=== PATIENT | female | born 1955 | race Caucasian/White ===

== ENCOUNTER 2016-11-03 21:55 | Emergency (ER) | payer OTHER ==
[2016-11-03] MEDS ORDERED: Iopamidol 755 Mg/ML 100 ML Bottle IVPUSH ONE (22:11)
[2016-11-03] MEDS ORDERED: LORazepam 2 MG/ML Syringe IVPUSH ONE (22:11)
[2016-11-03] MEDS ORDERED: Sodium Chloride 0.9% 500 ML IV SCH (22:15)
--- NOTE | 2016-11-03 22:15 | EDM.PDOC ---
ED HPI GENERAL MEDICAL PROBLEM - General Stated Complaint: BLOOD CLOT, CHEST PAIN Time Seen by Provider: 11/03/16 22:13 Source of Information: Reports: Patient History Limitations: Reports: No Limitations - History of Present Illness INITIAL COMMENTS - FREE TEXT/NARRATIVE: had PE in August and taking eliquist. SHINGLE [employer]ER same Sx returned with pain sob. Left Chest Pain Score (Numeric/FACES): 8 - Related Data Allergies Allergy/AdvReac Type Severity Reaction Status Date / Time fentanyl Allergy Severe throat Verified 11/03/16 23:08 swells prednisone Allergy Intermediate heart races Verified 11/03/16 23:08 Home Meds: Home Meds Apixaban [Eliquis] 5 mg PO BID 11/03/16 [History] Hydrochlorothiazide 12.5 mg PO DAILY 11/03/16 [History] Metoprolol Succinate 100 mg PO DAILY 11/03/16 [History] Venlafaxine [Effexor XR] 150 mg PO DAILY 11/03/16 [History] lamoTRIgine [Lamictal] 200 mg PO DAILY 11/03/16 [History] ED ROS GENERAL - Review of Systems Review Of Systems: ROS reveals no pertinent complaints other than HPI. ED EXAM, GENERAL - Physical Exam Exam: See Below Exam Limited By: No Limitations General Appearance: Alert, WD/WN, Anxious, Mild Distress Ears: Hearing Grossly Normal Throat/Mouth: Normal Voice, No Airway Compromise Head: Atraumatic Neck: Non-Tender, Full Range of Motion Respiratory/Chest: No Respiratory Distress, No Accessory Muscle Use, Rhonchi. No: Accessory Muscle Use, Retractions, Splinting Cardiovascular: Regular Rate, Rhythm GI/Abdominal: Soft, Non-Tender Neurological: Alert, Oriented, Normal Cognition, Normal Gait, No Motor/Sensory Deficits Psychiatric: Anxious Skin Exam: Warm, Dry Lymphatic: No Adenopathy Course - Vital Signs Last Recorded V/S: Last Vital Signs Temp 36.9 C 11/03/16 22:02 Pulse 77 11/03/16 22:02 Resp 18 11/03/16 22:02 BP 135/55 L 11/03/16 22:02 Pulse Ox 98 11/03/16 22:02 - Orders/Labs/Meds Orders: Active Orders 24 hr Category Date Time Status EKG 12 Lead [EKG Documentation Completion] [RC] STAT Care 11/03/16 22:12 Active Sodium Chloride 0.9% [Normal Saline] 500 ml Med 11/03/16 22:15 Active IV .BOLUS Medication Orders Sodium Chloride (Normal Saline) 500 mls @ 500 mls/hr IV .BOLUS BEULAH Last Admin: 11/03/16 22:46 Dose: 500 mls/hr Labs: Laboratory Tests 11/03/16 11/03/16 11/03/16 Range/Units 22:23 22:23 22:23 WBC 13.9 H (5.0-10.0) 10^3/uL RBC 4.34 (4.2-5.4) 10^6/uL Hgb 13.3 (12.0-16.0) g/dL Hct 41.1 (37.0-47.0) % MCV 94.7 (80-100) fL MCH 30.6 (27.0-34.0) pg MCHC 32.4 L (33.0-35.0) g/dL Plt Count 276 (150-450) 10^3/uL Neut % (Auto) 68.4 (42.2-75.2) % Lymph % (Auto) 24.2 (20.5-50.1) % [place] % (Auto) 6.3 (2-8) % Eos % (Auto) 0.7 L (1.0-3.0) % Baso % (Auto) 0.4 (0.0-1.0) % PT (9.0-12.0) SEC INR (0.9-1.2) APTT (22.0-34.0) SEC D-Dimer, Quantitative < 100 (0-400) ng/mL Sodium 140 (135-145) mmol/L Potassium 3.3 L (3.6-5.0) mmol/L Chloride 104 (101-111) mmol/L Carbon Dioxide 27.0 (21.0-31.0) mmol/L Anion Gap 12.3 BUN 14 (7-18) mg/dL Creatinine 0.8 (0.6-1.3) mg/dL Est Cr Clr Drug Dosing TNP Estimated GFR (MDRD) > 60 BUN/Creatinine Ratio 17.50 Glucose 101 (74-105) mg/dL Calcium 8.6 (8.4-10.2) mg/dl Total Bilirubin 0.4 (0.2-1.0) mg/dL AST 19 (10-42) IU/L ALT 19 (10-60) IU/L Alkaline Phosphatase 99 (42-121) IU/L Troponin I < 0.02 (0.00-0.02) ng/ml B-Natriuretic Peptide 68 (0-100) pg/ml Total Protein 6.8 (6.7-8.2) g/dl Albumin 3.8 (3.2-5.5) g/dl Globulin 3.0 Albumin/Globulin Ratio 1.27 // Range/Units 22:23 WBC (5.0-10.0) 10^3/uL RBC (4.2-5.4) 10^6/uL Hgb (12.0-16.0) g/dL Hct (37.0-47.0) % MCV (80-100) fL MCH (27.0-34.0) pg MCHC (33.0-35.0) g/dL Plt Count (150-450) 10^3/uL Neut % (Auto) (42.2-75.2) % Lymph % (Auto) (20.5-50.1) % [place] % (Auto) (2-8) % Eos % (Auto) (1.0-3.0) % Baso % (Auto) (0.0-1.0) % PT 10.8 (9.0-12.0) SEC INR 1.1 (0.9-1.2) APTT 27.4 (22.0-34.0) SEC D-Dimer, Quantitative (0-400) ng/mL Sodium (135-145) mmol/L Potassium (3.6-5.0) mmol/L Chloride (101-111) mmol/L Carbon Dioxide (21.0-31.0) mmol/L Anion Gap BUN (7-18) mg/dL Creatinine (0.6-1.3) mg/dL Est Cr Clr Drug Dosing Estimated GFR (MDRD) BUN/Creatinine Ratio Glucose (74-105) mg/dL Calcium (8.4-10.2) mg/dl Total Bilirubin (0.2-1.0) mg/dL AST (10-42) IU/L ALT (10-60) IU/L Alkaline Phosphatase (42-121) IU/L Troponin I (0.00-0.02) ng/ml B-Natriuretic Peptide (0-100) pg/ml Total Protein (6.7-8.2) g/dl Albumin (3.2-5.5) g/dl Globulin Albumin/Globulin Ratio Meds: Medications Generic Name Dose Route Start Last Admin Trade Name Esdras PRN Reason Stop Dose Admin Sodium Chloride 500 mls @ 500 mls/hr 11/03/16 22:15 11/03/16 22:46 Normal Saline IV 500 mls/hr .BOLUS BEULAH Administration Discontinued Medications Generic Name Dose Route Start Last Admin Trade Name Esdras PRN Reason Stop Dose Admin Diphenhydramine HCl 25 mg 11/03/16 22:36 11/03/16 22:45 Benadryl IVPUSH 11/03/16 22:37 25 mg ONETIME ONE Administration Hydromorphone HCl 1 mg 11/03/16 23:19 11/03/16 23:26 Dilaudid IVPUSH 11/03/16 23:20 1 mg ONETIME ONE Administration Iopamidol 100 ml 11/03/16 22:11 11/03/16 23:04 Isovue-370 (76%) IVPUSH 11/03/16 22:12 66 ml ONETIME ONE Administration Lorazepam 1 mg 11/03/16 22:11 11/03/16 22:30 Ativan IVPUSH 11/03/16 22:12 1 mg ONETIME ONE Administration Morphine Sulfate 2 mg 11/03/16 22:35 11/03/16 22:45 Morphine IVPUSH 11/03/16 22:36 2 mg ONETIME ONE Administration Morphine Sulfate 2 mg 11/03/16 23:56 Morphine IVPUSH 11/03/16 23:57 ONETIME ONE - Re-Assessments/Exams Free Text/Narrative Re-Assessment/Exam: 11/03/16 23:59 results discussed with Pt Departure - Departure Time of Disposition: 23:59 Disposition: Home, Self-Care 01 Condition: good Clinical Impression: Atypical chest pain, History of pulmonary embolism Instructions: Nonspecific Chest Pain, [id number] Forms: ED Department Discharge Additional Instructions: 1) rest and avoid excessive activities 2) try heat to sore areas of chest and back 3) follow up at clinic or recheck if there is any changes or concerns rx togo; norco x 2 - My Orders Last 24 Hours: My Active Orders 11/03/16 22:12 EKG 12 Lead [EKG Documentation Completion] [RC] STAT 11/03/16 22:15 Sodium Chloride 0.9% [Normal Saline] 500 ml IV .BOLUS - Assessment/Plan Last 24 Hours: My Active Orders 11/03/16 22:12 EKG 12 Lead [EKG Documentation Completion] [RC] STAT 11/03/16 22:15 Sodium Chloride 0.9% [Normal Saline] 500 ml IV .BOLUS
[2016-11-03] MEDS ORDERED: Morphine 2 MG/ML Syringe IVPUSH ONE ×2 (22:35→23:56)
[2016-11-03] MEDS ORDERED: diphenhydrAMINE 50 MG/ML SDV IVPUSH ONE (22:36)
[2016-11-03 22:48] LABS: CHLORIDE,CL 104 mmol/L (101-111); SODIUM,NA 140 mmol/L (135-145)
[2016-11-03] MEDS ORDERED: HYDROmorphone 1 MG/ML Syringe IVPUSH ONE (23:19)
[2016-11-04] MEDS ORDERED: Acetaminophen/HYDROcodone 325-10 MG Tab ONE (00:12)
[2016-11-04] MEDS ORDERED: Acetaminophen/HYDROcodone 325-10 MG Tab PO ONE (00:12)
[2016-11-04 00:20] VITALS: BP 135/55
--- NOTE | 2016-11-05 16:28 | EKG ---
11/03/2016 - BHARATH GONZALEZ - EKG from 10/26/2016 per my reading, shows inferior inverted T-waves, anteroseptal Q-waves. [facility] /[id number]
== END 2016-11-04 00:26 | disposition home or self-care (01) ==
LOC: DL.ED 21:55
DX: R07.89 Other chest pain (principal); Z86.711 Personal history of pulmonary embolism; Z88.8 Allergy status to other drugs, medicaments and biological substances; Z79.899 Other long term (current) drug therapy
CPT/HCPCS: 36415; 71260; 80053; 83880; 84484; 85025; 85379; 85610; 85730; 93005; 96361; 96374; 96375; 96376; 99285; J1170; J1200; J2060; J2270; J7040; Q9967; A9270-GY

== ENCOUNTER 2016-12-14 23:45 | Emergency (ER) | payer OTHER ==
[2016-12-15] MEDS ORDERED: Sodium Chloride 0.9% 1,000 ML IV ONE (00:21)
[2016-12-15] MEDS ORDERED: diphenhydrAMINE 50 MG/ML SDV IVPUSH ONE (00:22)
[2016-12-15] MEDS ORDERED: Ondansetron 4 MG/2 ML SDV IV ONE (00:23)
[2016-12-15] MEDS ORDERED: Morphine 2 MG/ML Syringe IVPUSH ONE ×2 (00:24→01:02)
[2016-12-15] MEDS ORDERED: Ketorolac 30 MG/ML SDV IVPUSH ONE (02:32)
--- NOTE | 2016-12-15 02:53 | EDM.PDOC ---
ED HPI GENERAL MEDICAL PROBLEM - General Chief Complaint: Headache Stated Complaint: MIGRAINE Time Seen by Provider: 12/15/16 00:19 Source of Information: Reports: Patient History Limitations: Reports: No Limitations - History of Present Illness INITIAL COMMENTS - FREE TEXT/NARRATIVE: c/o migraine headache starting this evening. Hx of migraines in past. Is visiting to area so did not have usual home medications to take. Experiencing nausea, light sensitivity, tenseness to neck and pain right side of head. Notes same patterna and severity of usual migraines. Last was one year ago. Notes under stress today and is usual trigger for headaches. Onset: Today Location: Reports: Head Quality: Reports: Ache, Same as Previous Episode, Throbbing Associated Symptoms: Reports: Headaches, Nausea/Vomiting Headache Pain Score (Numeric/FACES): 5 - Related Data Allergies Allergy/AdvReac Type Severity Reaction Status Date / Time fentanyl Allergy Severe throat Verified 12/15/16 00:05 swells prednisone Allergy Intermediate heart races Verified 12/15/16 00:05 Home Meds: Home Meds Apixaban [Eliquis] 5 mg PO BID 11/03/16 [History] ClonazePAM [KlonoPIN] 2 mg PO ASDIRECTED PRN 11/03/16 [History] Hydrochlorothiazide 12.5 mg PO DAILY 11/03/16 [History] Metoprolol Succinate 100 mg PO DAILY 11/03/16 [History] Venlafaxine [Effexor XR] 150 mg PO DAILY 11/03/16 [History] lamoTRIgine [Lamictal] 200 mg PO DAILY 11/03/16 [History] Past Medical History HEENT 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: Impaired Vision Other HEENT History: wears glasses Cardiovascular 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: Hypertension Psychiatric 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: Anxiety, Depression - Past Surgical History Cardiovascular Surgical 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: Other (See Below) Other Cardiovascular Surgeries/Procedures: PE GI Surgical 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: Appendectomy Social & Family History - Tobacco Use Smoking Status *Q: Never Smoker Second Hand Smoke Exposure: No - Caffeine Use Caffeine Use: Reports: Soda - Recreational Drug Use Recreational Drug Use: No ED ROS GENERAL - Review of Systems Review Of Systems: See Below Constitutional: Reports: No Symptoms HEENT: Reports: Eye Pain (sensitivity to light) Respiratory: Reports: No Symptoms Cardiovascular: Reports: No Symptoms Endocrine: Reports: No Symptoms GI/Abdominal: Reports: Nausea Skin: Reports: No Symptoms Neurological: Reports: Headache. Denies: Dizziness, Numbness, Paresthesia, Weakness Psychiatric: Reports: Anxiety - Physical Exam Exam: See Below Exam Limited By: No Limitations General Appearance: Alert, Moderate Distress Eye Exam: Bilateral Eye: EOMI, PERRL Ears: Normal External Exam Nose: Normal Inspection Throat/Mouth: Normal Inspection Head Exam: Atraumatic, Normocephalic, Scalp Tenderness (right paretal) Neck: Full Range of Motion, Other (tender lateral right posterior, tense muscles ) Respiratory/Chest: No Respiratory Distress, Lungs Clear, Normal Breath Sounds Cardiovascular: Normal Peripheral Pulses, Regular Rate, Rhythm GI/Abdominal: Normal Bowel Sounds Neuro Exam (Abbreviated): Alert, Oriented, Normal Cognition Extremities: Normal Inspection, Normal Range of Motion Psychiatric: Normal Affect, Normal Mood, Anxious Skin Exam: Warm, Dry, Intact, Normal Color, No Rash Course - Vital Signs Last Recorded V/S: Last Vital Signs Temp 98.1 F 12/15/16 02:50 Pulse 80 12/15/16 02:50 Resp 19 12/15/16 02:50 BP 128/63 12/15/16 02:50 Pulse Ox 98 12/15/16 02:50 - Orders/Labs/Meds Meds: Medications Discontinued Medications Generic Name Dose Route Start Last Admin Trade Name Esdras PRLindsey Reason Stop Dose Admin Diphenhydramine HCl 25 mg 12/15/16 00:22 12/15/16 00:44 Benadryl IVPUSH 12/15/16 00:23 25 mg ONETIME ONE Administration Sodium Chloride 1,000 mls @ 999 mls/hr 12/15/16 00:21 12/15/16 00:41 Normal Saline IV 12/15/16 01:21 999 mls/hr .BOLUS ONE Administration Ketorolac Tromethamine 30 mg 12/15/16 02:32 12/15/16 02:40 Toradol IVPUSH 12/15/16 02:33 Not Given ONETIME ONE Morphine Sulfate 2 mg 12/15/16 00:24 12/15/16 00:43 Morphine IVPUSH 12/15/16 00:25 2 mg ONETIME ONE Administration Morphine Sulfate 2 mg 12/15/16 01:02 12/15/16 01:10 Morphine IVPUSH 12/15/16 01:03 2 mg ONETIME ONE Administration Ondansetron HCl 4 mg 12/15/16 00:23 12/15/16 00:42 Zofran IV 12/15/16 00:24 4 mg ONETIME ONE Administration Departure - Departure Time of Disposition: 02:48 Disposition: Home, Self-Care 01 Condition: Fair Clinical Impression: Migraine - Discharge Information Instructions: Recurrent Migraine Headache, [id number] Referrals: PCP,Not In Area [Primary Care Provider] - Forms: ED Department Discharge Additional Instructions: rest resume home medications may repeat benadryl in 4 hours follow up as needed
[2016-12-15 03:03] VITALS: BP 128/63
== END 2016-12-15 02:54 | disposition home or self-care (01) ==
LOC: DL.ED 23:45
DX: G43.909 Migraine, unspecified, not intractable, without status migrainosus (principal); H54.7 Unspecified visual loss; I10 Essential (primary) hypertension; Z88.8 Allergy status to other drugs, medicaments and biological substances; Z79.899 Other long term (current) drug therapy
CPT/HCPCS: 96365; 96375; 99283; J1200; J2270; J2405; J7030

== ENCOUNTER 2017-01-05 20:28 | Emergency (ER) | payer OTHER ==
[2017-01-05 20:34] VITALS: BP 162/60
[2017-01-05] MEDS ORDERED: Butorphanol 2 MG/ML SDV IM ONE (21:00)
[2017-01-05] MEDS ORDERED: Promethazine 25 MG/ML SDV IM ONE (21:00)
--- NOTE | 2017-01-05 21:06 | EDM.PDOC ---
ED HPI GENERAL MEDICAL PROBLEM - General Chief Complaint: Headache Stated Complaint: MIGRAINE [id number] Time Seen by Provider: 01/05/17 20:53 Source of Information: Reports: Patient History Limitations: Reports: No Limitations - History of Present Illness INITIAL COMMENTS - FREE TEXT/NARRATIVE: gives h/o migraines usually Tx with P.O toradol if caught early but present due to family stress in having sick mother needing care and brother fighting with his and son preparing for his wedding and she forgot her toradol at home. Headache Pain Score (Numeric/FACES): 8 - Related Data Allergies Allergy/AdvReac Type Severity Reaction Status Date / Time fentanyl Allergy Severe throat Verified 12/15/16 00:05 swells prednisone Allergy Intermediate heart races Verified 12/15/16 00:05 gabapentin Allergy Nausea and Verified 01/05/17 20:36 Vomiting sumatriptan [From Imitrex] Allergy Nausea and Verified 01/05/17 20:36 Vomiting Home Meds: Home Meds Apixaban [Eliquis] 5 mg PO BID 11/03/16 [History] ClonazePAM [KlonoPIN] 2 mg PO ASDIRECTED PRN 11/03/16 [History] Hydrochlorothiazide 12.5 mg PO DAILY 11/03/16 [History] Metoprolol Succinate 100 mg PO DAILY 11/03/16 [History] Venlafaxine [Effexor XR] 150 mg PO DAILY 11/03/16 [History] lamoTRIgine [Lamictal] 200 mg PO DAILY 11/03/16 [History] Past Medical History HEENT 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: Impaired Vision Other HEENT History: wears glasses Cardiovascular 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: Hypertension Neurological 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: Migraines Psychiatric 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: Anxiety, Depression - Infectious Disease History Infectious Disease 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: Chicken Pox, Influenza, Measles, Mumps - Past Surgical History Cardiovascular Surgical 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: Other (See Below) Other Cardiovascular Surgeries/Procedures: PE GI Surgical 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: Appendectomy Social & Family History - Tobacco Use Smoking Status *Q: Never Smoker Second Hand Smoke Exposure: No - Caffeine Use Caffeine Use: Reports: Soda - Recreational Drug Use Recreational Drug Use: No ED ROS GENERAL - Review of Systems Review Of Systems: ROS reveals no pertinent complaints other than HPI. - Physical Exam Exam: See Below Exam Limited By: No Limitations General Appearance: Alert, WD/WN, Anxious, Mild Distress, Other (distraught crying) Eye Exam: Bilateral Eye: PERRL (pupils ER @ 4mm, mildly photophobic) Ears: Hearing Grossly Normal Throat/Mouth: Normal Voice, No Airway Compromise Head Exam: Atraumatic Neck: Non-Tender, Full Range of Motion Respiratory/Chest: No Respiratory Distress Cardiovascular: Regular Rate, Rhythm GI/Abdominal: Soft, Non-Tender Neuro Exam (Abbreviated): Alert, Oriented, Normal Cognition, Normal Gait, No Motor/Sensory Deficits Psychiatric: Tearful Skin Exam: Warm, Dry, Normal Color Course - Vital Signs Last Recorded V/S: Last Vital Signs Temp 36.9 C 01/05/17 20:33 Pulse 70 01/05/17 20:33 Resp 18 01/05/17 20:33 BP 162/60 H 01/05/17 20:33 Pulse Ox 99 01/05/17 20:33 - Orders/Labs/Meds Meds: Medications Discontinued Medications Generic Name Dose Route Start Last Admin Trade Name Freq PRN Reason Stop Dose Admin Butorphanol Tartrate 2 mg 01/05/17 21:00 Stadol IM 01/05/17 21:01 ONETIME ONE Promethazine HCl 25 mg 01/05/17 21:00 Phenergan IM 01/05/17 21:01 ONETIME ONE Departure - Departure Time of Disposition: 21:05 Disposition: Home, Self-Care 01 Condition: Good Clinical Impression: Tension-type headache - Discharge Information Instructions: Recurrent Migraine Headache, [id number] Forms: ED Department Discharge Additional Instructions: 1) rest 2) avoid stressful situations 3) follow up with family doctor rx togo; ativan 1mg take at night as needed x 1
[2017-01-05] MEDS ORDERED: LORazepam 1 MG Tab PO ONE (21:11)
[2017-01-05] MEDS ORDERED: LORazepam 1 MG Tab ONE (21:11)
== END 2017-01-05 21:26 | disposition home or self-care (01) ==
LOC: DL.ED 20:28
DX: G44.209 Tension-type headache, unspecified, not intractable (principal); I10 Essential (primary) hypertension; F41.9 Anxiety disorder, unspecified; F32.9 Major depressive disorder, single episode, unspecified; Z88.8 Allergy status to other drugs, medicaments and biological substances; Z79.899 Other long term (current) drug therapy; Z90.49 Acquired absence of other specified parts of digestive tract; Z86.711 Personal history of pulmonary embolism
CPT/HCPCS: 99283; J0595; J2550; A9270-GY

== ENCOUNTER 2017-03-16 19:30 | Emergency (ER) | payer OTHER ==
[2017-03-16 20:15] VITALS: BP 132/67
[2017-03-16] MEDS ORDERED: Butorphanol 2 MG/ML SDV IM ONE (21:17)
[2017-03-16] MEDS ORDERED: Promethazine 25 MG/ML SDV IM ONE (21:17)
--- NOTE | 2017-03-16 21:17 | EDM.PDOC ---
ED HPI GENERAL MEDICAL PROBLEM - General Chief Complaint: Headache Stated Complaint: MIGRAINE [id number] Time Seen by Provider: 03/16/17 21:19 Source of Information: Reports: Patient History Limitations: Reports: No Limitations - History of Present Illness INITIAL COMMENTS - FREE TEXT/NARRATIVE: C/o right sided migraine headache, started this am, but has not felt well all week worrying about health issues. 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 Hx migraine headaches. This similar as in past. Unable to sleep and home headache medications not helping. Sensitive to lights and nauseated. Headache Pain Score (Numeric/FACES): 8 - Related Data Allergies Allergy/AdvReac Type Severity Reaction Status Date / Time fentanyl Allergy Severe throat Verified 03/16/17 20:15 swells prednisone Allergy Intermediate heart races Verified 03/16/17 20:15 gabapentin Allergy Nausea and Verified 03/16/17 20:15 Vomiting sumatriptan [From Imitrex] Allergy Nausea and Verified 03/16/17 20:15 Vomiting Home Meds: Home Meds Apixaban [Eliquis] 5 mg PO BID 11/03/16 [History] ClonazePAM [KlonoPIN] 2 mg PO ASDIRECTED PRN 11/03/16 [History] Hydrochlorothiazide 12.5 mg PO DAILY 11/03/16 [History] Metoprolol Succinate 100 mg PO DAILY 11/03/16 [History] Venlafaxine [Effexor XR] 150 mg PO DAILY 11/03/16 [History] lamoTRIgine [Lamictal] 200 mg PO DAILY 11/03/16 [History] Past Medical History HEENT 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: Impaired Vision Other HEENT History: wears glasses Cardiovascular 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: Hypertension Neurological 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: Migraines Psychiatric 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: Anxiety, Depression Other Endocrine/Metabolic History: adreanal tumur - Infectious Disease History Infectious Disease 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: Chicken Pox, Influenza, Measles, Mumps - Past Surgical History Cardiovascular Surgical 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: Other (See Below) Other Cardiovascular Surgeries/Procedures: PE GI Surgical 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: Appendectomy Social & Family History - Tobacco Use Smoking Status *Q: Never Smoker Second Hand Smoke Exposure: No - Caffeine Use Caffeine Use: Reports: Soda - Recreational Drug Use Recreational Drug Use: No ED ROS GENERAL - Review of Systems Review Of Systems: ROS reveals no pertinent complaints other than HPI. Musculoskeletal: Denies: Neck Pain Neurological: Reports: Headache (right frontal temproal throbbing) - Physical Exam Exam: See Below Exam Limited By: No Limitations General Appearance: Alert, Anxious, Mild Distress Eye Exam: Bilateral Eye: EOMI, PERRL (photosensitivity) Ears: Normal External Exam Nose: Normal Inspection Throat/Mouth: Normal Inspection Head Exam: Atraumatic, Normocephalic Neck: Normal Inspection Respiratory/Chest: No Respiratory Distress, Lungs Clear, Normal Breath Sounds Cardiovascular: Normal Peripheral Pulses, Regular Rate, Rhythm GI/Abdominal: Normal Bowel Sounds Neuro Exam (Abbreviated): Alert, Oriented, Normal Cognition Extremities: Normal Range of Motion Psychiatric: Anxious, Tearful Skin Exam: Warm, Dry, Normal Color Course - Vital Signs Last Recorded V/S: Last Vital Signs Temp 97.8 F 03/16/17 20:09 Pulse 65 03/16/17 20:09 Resp 18 03/16/17 20:09 BP 132/67 03/16/17 20:09 Pulse Ox 100 03/16/17 20:09 - Orders/Labs/Meds Meds: Medications Discontinued Medications Generic Name Dose Route Start Last Admin Trade Name Freq PRN Reason Stop Dose Admin Butorphanol Tartrate 1 mg 03/16/17 21:17 03/16/17 21:32 Stadol IM 03/16/17 21:18 1 mg ONETIME ONE Administration Promethazine HCl 12.5 mg 03/16/17 21:17 03/16/17 21:29 Phenergan IM 03/16/17 21:18 12.5 mg ONETIME ONE Administration Departure - Departure Time of Disposition: 21:45 Disposition: Home, Self-Care 01 Condition: Fair Clinical Impression: Migraine - Discharge Information Instructions: Recurrent Migraine Headache, [id number] Referrals: PCP,None [Primary Care Provider] - Forms: ED Department Discharge Additional Instructions: Talk with primary care in am zofran 4mg ODT one every 6 hours as needed for nausea rest,
== END 2017-03-16 21:49 | disposition home or self-care (01) ==
LOC: DL.ED 19:30
DX: G43.909 Migraine, unspecified, not intractable, without status migrainosus (principal); I10 Essential (primary) hypertension; F32.9 Major depressive disorder, single episode, unspecified; Z90.49 Acquired absence of other specified parts of digestive tract; Z79.899 Other long term (current) drug therapy; Z88.8 Allergy status to other drugs, medicaments and biological substances
CPT/HCPCS: 96361; 96374; 99284; J0595; J2550

== ENCOUNTER 2017-06-08 22:45 | Emergency (ER) | payer OTHER ==
[2017-06-08] MEDS ORDERED: Butorphanol 2 MG/ML SDV IM ONE (23:08)
[2017-06-08] MEDS ORDERED: Promethazine 25 MG/ML SDV IM ONE (23:08)
[2017-06-08 23:09] VITALS: BP 138/63
--- NOTE | 2017-06-08 23:12 | EDM.PDOC ---
ED HPI GENERAL MEDICAL PROBLEM - General Chief Complaint: Headache Stated Complaint: MIGRAINE [id number] Time Seen by Provider: 06/08/17 23:07 Source of Information: Reports: Patient History Limitations: Reports: No Limitations - History of Present Illness INITIAL COMMENTS - FREE TEXT/NARRATIVE: long h/o migraine problem, present problem all day, did vomit x 1 Headache Pain Score (Numeric/FACES): 8 - Related Data Allergies Allergy/AdvReac Type Severity Reaction Status Date / Time fentanyl Allergy Severe throat Verified 06/08/17 22:54 swells prednisone Allergy Intermediate heart races Verified 06/08/17 22:54 gabapentin Allergy Nausea and Verified 06/08/17 22:54 Vomiting sumatriptan [From Imitrex] Allergy Nausea and Verified 06/08/17 22:54 Vomiting Home Meds: Home Meds Apixaban [Eliquis] 5 mg PO BID 11/03/16 [History] ClonazePAM [KlonoPIN] 2 mg PO ASDIRECTED PRN 11/03/16 [History] Hydrochlorothiazide 12.5 mg PO DAILY 11/03/16 [History] Metoprolol Succinate 100 mg PO DAILY 11/03/16 [History] Venlafaxine [Effexor XR] 150 mg PO DAILY 11/03/16 [History] lamoTRIgine [Lamictal] 200 mg PO DAILY 11/03/16 [History] Potassium Chloride [Klor-Con 10] 1 tab PO BID 06/08/17 [History] Past Medical History HEENT 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: Impaired Vision Other HEENT History: wears glasses Cardiovascular 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: Hypertension Neurological 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: Migraines Psychiatric 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: Anxiety, Depression Other Endocrine/Metabolic History: adreanal tumur - Infectious Disease History Infectious Disease 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: Chicken Pox, Influenza, Measles, Mumps - Past Surgical History Cardiovascular Surgical 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: Other (See Below) Other Cardiovascular Surgeries/Procedures: PE GI Surgical 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: Appendectomy Social & Family History - Tobacco Use Smoking Status *Q: Never Smoker Second Hand Smoke Exposure: No - Caffeine Use Caffeine Use: Reports: Soda - Recreational Drug Use Recreational Drug Use: No ED ROS GENERAL - Review of Systems Review Of Systems: ROS reveals no pertinent complaints other than HPI. - Physical Exam Exam: See Below Exam Limited By: No Limitations General Appearance: Alert, WD/WN, Mild Distress, Moderate Distress, Other (upset ) Eye Exam: Bilateral Eye: PERRL (pupils ER @ 4mm photophobic) Ears: Hearing Grossly Normal Throat/Mouth: Normal Voice, No Airway Compromise Head Exam: Atraumatic Neck: Non-Tender, Full Range of Motion Respiratory/Chest: No Respiratory Distress Cardiovascular: Regular Rate, Rhythm GI/Abdominal: Soft, Non-Tender Neuro Exam (Abbreviated): Alert, Oriented, Normal Cognition, Normal Gait, No Motor/Sensory Deficits Psychiatric: Tearful Skin Exam: Warm, Dry, Normal Color Course - Orders/Labs/Meds Orders: Active Orders 24 hr Category Date Time Status Butorphanol [Stadol] Med 06/08/17 23:08 Once 2 mg IM ONETIME ONE Promethazine [Phenergan] Med 06/08/17 23:08 Once 25 mg IM ONETIME ONE Departure - Departure Time of Disposition: 23:10 Disposition: Home, Self-Care 01 Condition: Good Clinical Impression: Migraine - Discharge Information Instructions: Recurrent Migraine Headache, [id number] Additional Instructions: 1) rest and avoid bright light and loud noise 2) liquids diet next 24 hours 3) follow up with family doctor or recheck as needed - My Orders Last 24 Hours: My Active Orders 06/08/17 23:08 Butorphanol [Stadol] 2 mg IM ONETIME ONE Promethazine [Phenergan] 25 mg IM ONETIME ONE - Assessment/Plan Last 24 Hours: My Active Orders 06/08/17 23:08 Butorphanol [Stadol] 2 mg IM ONETIME ONE Promethazine [Phenergan] 25 mg IM ONETIME ONE
[2017-06-08] MEDS ORDERED: HYDROmorphone 1 MG/ML Syringe IM ONE (23:47)
== END 2017-06-09 00:18 | disposition home or self-care (01) ==
LOC: DL.ED 22:45
DX: G43.909 Migraine, unspecified, not intractable, without status migrainosus (principal); I10 Essential (primary) hypertension; F32.9 Major depressive disorder, single episode, unspecified; Z79.899 Other long term (current) drug therapy; Z88.8 Allergy status to other drugs, medicaments and biological substances; Z88.5 Allergy status to narcotic agent
CPT/HCPCS: 96372; 99282; J0595; J1170; J2550

== ENCOUNTER 2017-06-21 22:52 | Emergency (ER) | payer OTHER ==
[2017-06-21 22:59] VITALS: BP 151/53
[2017-06-21] MEDS ORDERED: Butorphanol 2 MG/ML SDV IM ONE (23:33)
[2017-06-21] MEDS ORDERED: Promethazine 25 MG/ML SDV IM ONE (23:33)
--- NOTE | 2017-06-21 23:39 | EDM.PDOC ---
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 currently pending surgery and been caring for elderly mother. Treatments RESIN PAINTER: Reports: Acetaminophen Frontal Head Pain Score (Numeric/FACES): 8 - Related Data Allergies Allergy/AdvReac Type Severity Reaction Status Date / Time fentanyl Allergy Severe throat Verified 06/21/17 23:03 swells prednisone Allergy Intermediate heart races Verified 06/21/17 23:03 gabapentin Allergy Nausea and Verified 06/21/17 23:03 Vomiting sumatriptan [From Imitrex] Allergy Nausea and Verified 06/21/17 23:03 Vomiting Home Meds: Home Meds Apixaban [Eliquis] 5 mg PO BID 11/03/16 [History] ClonazePAM [KlonoPIN] 2 mg PO ASDIRECTED PRN 11/03/16 [History] Hydrochlorothiazide 12.5 mg PO DAILY 11/03/16 [History] Metoprolol Succinate 100 mg PO DAILY 11/03/16 [History] Venlafaxine [Effexor XR] 150 mg PO DAILY 11/03/16 [History] lamoTRIgine [Lamictal] 200 mg PO DAILY 11/03/16 [History] Potassium Chloride [Klor-Con 10] 1 tab PO BID 06/08/17 [History] Past Medical History HEENT 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: Impaired Vision Other HEENT History: wears glasses Cardiovascular 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: Hypertension 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 AIDE 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: Neurological 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: Migraines Psychiatric 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: Anxiety, Depression Other Endocrine/Metabolic History: adreanal tumur - Infectious Disease History Infectious Disease 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: Chicken Pox, Influenza, Measles, Mumps - Past Surgical History Cardiovascular Surgical 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: Other (See Below) Other Cardiovascular Surgeries/Procedures: PE GI Surgical 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: Appendectomy Social & Family History - Tobacco Use Smoking Status *Q: Never Smoker Second Hand Smoke Exposure: No - Caffeine Use Caffeine Use: Reports: Soda - Recreational Drug Use Recreational Drug Use: No ED ROS GENERAL - Review of Systems Review Of Systems: ROS reveals no pertinent complaints other than HPI. - Physical Exam Exam: See Below Exam Limited By: No Limitations General Appearance: Alert, WD/WN, Mild Distress, Moderate Distress, Other ( distraught) Eye Exam: Bilateral Eye: PERRL (pupils ER @ 4mm) Ears: Hearing Grossly Normal Throat/Mouth: Normal Voice, No Airway Compromise Head Exam: Atraumatic Neck: Non-Tender, Full Range of Motion Respiratory/Chest: No Respiratory Distress Cardiovascular: Regular Rate, Rhythm GI/Abdominal: Soft, Non-Tender Neuro Exam (Abbreviated): Alert, Oriented, Normal Cognition, Normal Gait, No Motor/Sensory Deficits Psychiatric: Anxious, Tearful Skin Exam: Warm, Dry, Normal Color Course - Vital Signs Last Recorded V/S: Last Vital Signs Temp 36.2 C 06/21/17 22:58 Pulse 71 06/21/17 22:58 Resp 18 06/21/17 22:58 BP 151/53 H 06/21/17 22:58 Pulse Ox 99 06/21/17 22:58 - Orders/Labs/Meds Meds: Medications Discontinued Medications Generic Name Dose Route Start Last Admin Trade Name Esdras PRN Reason Stop Dose Admin Butorphanol Tartrate 2 mg 06/21/17 23:33 06/21/17 23:41 Stadol IM 06/21/17 23:34 2 mg ONETIME ONE Administration Promethazine HCl 25 mg 06/21/17 23:33 06/21/17 23:41 Phenergan IM 06/21/17 23:34 25 mg ONETIME ONE Administration Departure - Departure Time of Disposition: 23:49 Disposition: Home, Self-Care 01 Condition: Good Clinical Impression: Migraine - Discharge Information Instructions: Recurrent Migraine Headache, [id number] Forms: ED Department Discharge Additional Instructions: 1) rest and avoid strenuous activities 2) follow up with family doctor or recheck as needed
[2017-06-22] MEDS ORDERED: LORazepam 2 MG/ML Syringe IM ONE (00:22)
== END 2017-06-22 00:58 | disposition home or self-care (01) ==
LOC: DL.ED 22:52
DX: G43.909 Migraine, unspecified, not intractable, without status migrainosus (principal); I10 Essential (primary) hypertension; Z88.8 Allergy status to other drugs, medicaments and biological substances
CPT/HCPCS: 96372; 99283; J0595; J2060; J2550

== ENCOUNTER 2017-08-16 22:05 | Emergency (ER) | payer OTHER ==
[2017-08-16 22:40] VITALS: BP 134/54
--- NOTE | 2017-08-16 23:26 | EDM.PDOC ---
ED HPI GENERAL MEDICAL PROBLEM - General Chief Complaint: General Stated Complaint: SWOLLEN FEET [id number] Time Seen by Provider: 08/16/17 23:23 Source of Information: Reports: Patient, RN Notes Reviewed History Limitations: Reports: No Limitations - History of Present Illness INITIAL COMMENTS - FREE TEXT/NARRATIVE: ED with c/o feet swelling and 20# weight gain since Friday, Hx recent dx pheochromocytoma and is on high dose sodium prep prior to surgery. Surgery scheduled for [facility] - Related Data Allergies Allergy/AdvReac Type Severity Reaction Status Date / Time fentanyl Allergy Severe throat Verified 08/16/17 23:18 swells prednisone Allergy Intermediate heart races Verified 08/16/17 23:18 gabapentin Allergy Nausea and Verified 08/16/17 23:18 Vomiting sumatriptan [From Imitrex] Allergy Nausea and Verified 08/16/17 23:18 Vomiting Home Meds: Home Meds Apixaban [Eliquis] 5 mg PO BID 11/03/16 [History] ClonazePAM [KlonoPIN] 0.5 mg PO ASDIRECTED PRN 11/03/16 [History] Metoprolol Succinate 100 mg PO DAILY 11/03/16 [History] Venlafaxine [Effexor XR] 150 mg PO DAILY 11/03/16 [History] lamoTRIgine [Lamictal] 200 mg PO DAILY 11/03/16 [History] Doxazosin [Doxazosin Mesylate] 2 mg PO BID 08/16/17 [History] Past Medical History HEENT 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: Impaired Vision Other HEENT History: wears glasses Cardiovascular 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: Hypertension Gastrointestinal 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: GERD SURGERY TECH 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: Musculoskeletal 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: Arthritis, Osteoarthritis Other Musculoskeletal History: Left shoulder and knees oliva. 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 Oncologic (Cancer) 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: Other (See Below) Other Oncologic History: Tumor pheochromocytoma - Infectious Disease History Infectious Disease 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: Chicken Pox, Influenza, Measles, Mumps - Past Surgical History Cardiovascular Surgical 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: Other (See Below) Other Cardiovascular Surgeries/Procedures: PE GI Surgical 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: Appendectomy Social & Family History - Family History Family Medical History: Noncontributory - Tobacco Use Smoking Status *Q: Never Smoker Second Hand Smoke Exposure: No - Caffeine Use Caffeine Use: Reports: None, Soda - Recreational Drug Use Recreational Drug Use: No ED ROS GENERAL - Review of Systems Review Of Systems: See Below Constitutional: Reports: Weight Gain HEENT: Reports: Glasses Respiratory: Reports: No Symptoms Cardiovascular: Reports: Edema GI/Abdominal: Reports: Nausea : Reports: No Symptoms Musculoskeletal: Reports: Muscle Stiffness Neurological: Reports: No Symptoms Psychiatric: Reports: Anxiety ED EXAM, GENERAL - Physical Exam Exam: See Below Exam Limited By: No Limitations General Appearance: Alert, Anxious Eye Exam: Bilateral Eye: EOMI, PERRL Ears: Normal External Exam, Normal TMs Nose: Normal Inspection Throat/Mouth: Normal Inspection, Normal Lips, Normal Oropharynx, Normal Voice Head: Atraumatic, Normocephalic Neck: Normal Inspection, Full Range of Motion. No: Lymphadenopathy (L), Lymphadenopathy (R) Respiratory/Chest: No Respiratory Distress, Lungs Clear, Normal Breath Sounds Cardiovascular: Normal Peripheral Pulses, Regular Rate, Rhythm GI/Abdominal: Normal Bowel Sounds, Soft, Non-Tender Back Exam: Normal Inspection Extremities: Pedal Edema (trace) Neurological: Alert, Oriented, CN II-XII Intact, Normal Cognition, Normal Gait, No Motor/Sensory Deficits Psychiatric: Anxious, Tearful Skin Exam: Warm, Dry, Intact, Normal Color Course - Vital Signs Last Recorded V/S: Last Vital Signs Temp 97.8 F 08/16/17 22:25 Pulse 80 08/16/17 22:25 Resp 14 08/16/17 22:25 BP 134/54 L 08/16/17 22:25 Pulse Ox 99 08/16/17 22:25 - Orders/Labs/Meds Labs: Laboratory Tests 08/16/17 08/16/17 08/16/17 Range/Units 22:55 22:55 22:55 WBC 11.3 H (5.0-10.0) 10^3/uL RBC 3.68 L (4.2-5.4) 10^6/uL Hgb 11.0 L D (12.0-16.0) g/dL Hct 33.5 L (37.0-47.0) % MCV 91.0 D (80-100) fL MCH 29.9 (27.0-34.0) pg MCHC 32.8 L (33.0-35.0) g/dL Plt Count 218 (150-450) 10^3/uL Neut % (Auto) 65.2 (42.2-75.2) % Lymph % (Auto) 25.4 (20.5-50.1) % [place] % (Auto) 7.3 (2-8) % Eos % (Auto) 1.9 (1.0-3.0) % Baso % (Auto) 0.2 (0.0-1.0) % PT 10.5 (9.0-12.0) SEC INR 1.0 (0.9-1.2) Sodium 140 (135-145) mmol/L Potassium 3.6 (3.6-5.0) mmol/L Chloride 107 (101-111) mmol/L Carbon Dioxide 27.0 (21.0-31.0) mmol/L Anion Gap 9.6 BUN 13 (7-18) mg/dL Creatinine 0.8 (0.6-1.3) mg/dL Est Cr Clr Drug Dosing 70.01 mL/min Estimated GFR (MDRD) > 60 BUN/Creatinine Ratio 16.25 Glucose 104 (74-105) mg/dL Calcium 8.2 L (8.4-10.2) mg/dl Magnesium 1.9 (1.8-2.5) mg/dL Total Bilirubin 0.5 (0.2-1.0) mg/dL AST 35 (10-42) IU/L ALT 37 (10-60) IU/L Alkaline Phosphatase 87 (42-121) IU/L CK-MB (CK-2) (0.4-4.7) ng/mL Troponin I < 0.02 (0.00-0.02) ng/ml B-Natriuretic Peptide 114 H (0-100) pg/ml Total Protein 6.1 L (6.7-8.2) g/dl Albumin 3.1 L (3.2-5.5) g/dl Globulin 3.0 Albumin/Globulin Ratio 1.03 /03/26 Range/Units 22:55 WBC (5.0-10.0) 10^3/uL RBC (4.2-5.4) 10^6/uL Hgb (12.0-16.0) g/dL Hct (37.0-47.0) % MCV (80-100) fL MCH (27.0-34.0) pg MCHC (33.0-35.0) g/dL Plt Count (150-450) 10^3/uL Neut % (Auto) (42.2-75.2) % Lymph % (Auto) (20.5-50.1) % [place] % (Auto) (2-8) % Eos % (Auto) (1.0-3.0) % Baso % (Auto) (0.0-1.0) % PT (9.0-12.0) SEC INR (0.9-1.2) Sodium (135-145) mmol/L Potassium (3.6-5.0) mmol/L Chloride (101-111) mmol/L Carbon Dioxide (21.0-31.0) mmol/L Anion Gap BUN (7-18) mg/dL Creatinine (0.6-1.3) mg/dL Est Cr Clr Drug Dosing mL/min Estimated GFR (MDRD) BUN/Creatinine Ratio Glucose (74-105) mg/dL Calcium (8.4-10.2) mg/dl Magnesium (1.8-2.5) mg/dL Total Bilirubin (0.2-1.0) mg/dL AST (10-42) IU/L ALT (10-60) IU/L Alkaline Phosphatase (42-121) IU/L CK-MB (CK-2) 2.60 (0.4-4.7) ng/mL Troponin I (0.00-0.02) ng/ml B-Natriuretic Peptide (0-100) pg/ml Total Protein (6.7-8.2) g/dl Albumin (3.2-5.5) g/dl Globulin Albumin/Globulin Ratio - Radiology Interpretation Free Text/Narrative:: CXR clear lungs, no cardiomegaly Departure - Departure Time of Disposition: 00:21 Disposition: Home, Self-Care 01 Condition: Good, Undetermined Clinical Impression: Anxiety Pheochromocytoma Qualifiers: Laterality: unspecified laterality Qualified Code(s): D35.00 - Benign neoplasm of unspecified adrenal gland Edema Qualifiers: Edema type: unspecified Qualified Code(s): R60.9 - Edema, unspecified - Discharge Information Forms: ED Department Discharge Additional Instructions: Follow up with [facility] providers in am Elevate feet Clonazepam may take up to 3 times daily Continue monitoring blood pressure and weight Urgent follow up if chest pain or SOB
[2017-08-16 23:35] LABS: CHLORIDE,CL 107 mmol/L (101-111); SODIUM,NA 140 mmol/L (135-145)
--- NOTE | 2017-08-20 10:36 | EKG ---
08/16/2017- BHARATH GONZALEZ - EKG, per my reading, shows sinus rhythm at a rate of 78. [facility] /[id number]
== END 2017-08-17 00:33 | disposition home or self-care (01) ==
LOC: DL.ED 22:05
DX: R60.9 Edema, unspecified (principal); F41.9 Anxiety disorder, unspecified; D35.00 Benign neoplasm of unspecified adrenal gland; I10 Essential (primary) hypertension; K21.9 Gastro-esophageal reflux disease without esophagitis; F32.9 Major depressive disorder, single episode, unspecified; M19.90 Unspecified osteoarthritis, unspecified site; Z88.8 Allergy status to other drugs, medicaments and biological substances; Z88.5 Allergy status to narcotic agent; Z79.899 Other long term (current) drug therapy; Z90.49 Acquired absence of other specified parts of digestive tract
CPT/HCPCS: 36415; 71046; 80053; 82553; 83735; 83880; 84484; 85025; 85610; 93005; 99284

== ENCOUNTER 2017-09-14 20:18 | Emergency (ER) | payer OTHER ==
[2017-09-14 20:33] VITALS: BP 108/57
[2017-09-14] MEDS ORDERED: Sodium Chloride 0.9% 1,000 ML IV ONE (21:02)
[2017-09-14] MEDS ORDERED: Sodium Chloride 0.9% 10 ML Syringe FLUSH PRN (21:02)
[2017-09-14] MEDS ORDERED: Ondansetron 4 MG/2 ML SDV IV ONE (21:02)
--- NOTE | 2017-09-14 21:34 | EDM.PDOC ---
ED HPI GENERAL MEDICAL PROBLEM - General Chief Complaint: Respiratory Problem Stated Complaint: [id number] BRONCHITUS JUST HAD SURGERY Time Seen by Provider: 09/14/17 20:51 Source of Information: Reports: Patient, RN, RN Notes Reviewed History Limitations: Reports: No Limitations - History of Present Illness INITIAL COMMENTS - FREE TEXT/NARRATIVE: Pt presents to the ER with several c/o. She states she had surgery at [place] about 3 weeks ago for an adrenalectomy. She states she feels she has bronchitis and sinus infection. She admits to nausea, coughing, decreased appetite, decreased fluid intake, fever, chills, anxiety, pain at one incision site (5-8/ 10), weakness, cough, and sinus congestion. Pt denies vomiting or diarrhea, chest pain, SOB, or sore throat. Onset: Gradual Left Upper Abdomen Pain Score (Numeric/FACES): 7 - Related Data Allergies Allergy/AdvReac Type Severity Reaction Status Date / Time fentanyl Allergy Severe throat Verified 09/14/17 20:33 swells prednisone Allergy Intermediate heart races Verified 09/14/17 20:33 gabapentin Allergy Nausea and Verified 09/14/17 20:33 Vomiting sumatriptan [From Imitrex] Allergy Nausea and Verified 09/14/17 20:33 Vomiting Home Meds: Home Meds Apixaban [Eliquis] 5 mg PO BID 11/03/16 [History] Metoprolol Succinate 100 mg PO DAILY 11/03/16 [History] Venlafaxine [Effexor XR] 150 mg PO DAILY 11/03/16 [History] lamoTRIgine [Lamictal] 200 mg PO DAILY 11/03/16 [History] Past Medical History HEENT 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: Impaired Vision Other HEENT History: wears glasses Cardiovascular 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: Hypertension Gastrointestinal 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: GERD 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, adreanalectomy Oncologic (Cancer) 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: Other (See Below) Other Oncologic History: Tumor pheochromocytoma - Infectious Disease History Infectious Disease 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: Chicken Pox, Influenza, Measles, Mumps - Past Surgical History Cardiovascular Surgical 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: Other (See Below) Other Cardiovascular Surgeries/Procedures: PE GI Surgical 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: Appendectomy Social & Family History - Family History Family Medical History: Noncontributory - Tobacco Use Smoking Status *Q: Never Smoker Second Hand Smoke Exposure: No - Caffeine Use Caffeine Use: Reports: None, Soda - Recreational Drug Use Recreational Drug Use: No ED ROS GENERAL - Review of Systems Review Of Systems: ROS reveals no pertinent complaints other than HPI. ED EXAM, GENERAL - Physical Exam Exam: See Below Exam Limited By: No Limitations General Appearance: Alert, WD/WN, Anxious Eye Exam: Bilateral Eye: EOMI, Normal Inspection Ears: Normal External Exam, Hearing Grossly Normal Nose: Normal Inspection, Normal Mucosa, No Blood Throat/Mouth: Normal Inspection, Normal Lips, Normal Teeth, Normal Gums, Normal Oropharynx, Normal Voice, No Airway Compromise Head: Atraumatic, Normocephalic Neck: Normal Inspection, Supple, Non-Tender, Full Range of Motion Respiratory/Chest: No Respiratory Distress, Lungs Clear, Normal Breath Sounds, No Accessory Muscle Use, Chest Non-Tender Cardiovascular: Normal Peripheral Pulses, Regular Rate, Rhythm, No Edema, No Gallop, No JVD, No Murmur, No Rub Peripheral Pulses: 2+: Radial (L), Radial (R) GI/Abdominal: Normal Bowel Sounds, Soft, No Distention, Tender (Female) Exam: Deferred Rectal (Female) Exam: Deferred Back Exam: Normal Inspection, Full Range of Motion, NT Extremities: Normal Inspection, Normal Range of Motion, Non-Tender, Normal Capillary Refill, No Pedal Edema Neurological: Alert, Oriented, CN II-XII Intact, Normal Cognition, Normal Gait, Normal Reflexes, No Motor/Sensory Deficits Psychiatric: Anxious, Tearful Skin Exam: Warm, Dry, Normal Color, No Rash, Other (4 healing incision on the abdomen) Lymphatic: No Adenopathy Course - Vital Signs Last Recorded V/S: Last Vital Signs Temp 97.4 F 09/14/17 20:28 Pulse 80 09/14/17 20:28 Resp 18 09/14/17 20:28 BP 108/57 L 09/14/17 20:28 Pulse Ox 99 09/14/17 20:28 - Orders/Labs/Meds Orders: Active Orders 24 hr Category Date Time Status Peripheral IV Care [RC] . DIRECTED Care 09/14/17 21:02 Active INFLUENZA A+B AG SCREEN [RM] Stat Lab 09/14/17 21:15 Ordered UA W/MICROSCOPIC [URIN] Stat Lab 09/14/17 22:36 Ordered Peripheral IV Insertion Adult [OM.PC] Stat Oth 09/14/17 21:02 Ordered Labs: Laboratory Tests 09/14/17 09/14/17 Range/Units 21:10 21:10 WBC 9.4 (5.0-10.0) 10^3/uL RBC 4.70 (4.2-5.4) 10^6/uL Hgb 14.1 D (12.0-16.0) g/dL Hct 42.3 (37.0-47.0) % MCV 90.0 (80-100) fL MCH 30.0 (27.0-34.0) pg MCHC 33.3 (33.0-35.0) g/dL Plt Count 364 D (150-450) 10^3/uL Neut % (Auto) 60.6 (42.2-75.2) % Lymph % (Auto) 28.3 (20.5-50.1) % [place] % (Auto) 8.9 H (2-8) % Eos % (Auto) 1.8 (1.0-3.0) % Baso % (Auto) 0.4 (0.0-1.0) % Sodium 140 (135-145) mmol/L Potassium 4.2 (3.6-5.0) mmol/L Chloride 107 (101-111) mmol/L Carbon Dioxide 24.0 (21.0-31.0) mmol/L Anion Gap 13.2 BUN 22 H (7-18) mg/dL Creatinine 1.0 (0.6-1.3) mg/dL Est Cr Clr Drug Dosing 56.00 mL/min Estimated GFR (MDRD) 57 BUN/Creatinine Ratio 22.00 Glucose 112 H (74-105) mg/dL Calcium 9.1 (8.4-10.2) mg/dl Total Bilirubin 0.7 (0.2-1.0) mg/dL AST 28 (10-42) IU/L ALT 24 (10-60) IU/L Alkaline Phosphatase 80 (42-121) IU/L Total Protein 6.9 (6.7-8.2) g/dl Albumin 3.7 (3.2-5.5) g/dl Globulin 3.2 Albumin/Globulin Ratio 1.16 Influenza A: Negative Influenza B: Positive Meds: Medications Discontinued Medications Generic Name Dose Route Start Last Admin Trade Name Esdras PRN Reason Stop Dose Admin Butorphanol Tartrate 2 mg 09/14/17 22:09 09/14/17 22:18 Stadol IVPUSH 09/14/17 22:10 2 mg ONETIME ONE Administration Sodium Chloride 1,000 mls @ 999 mls/hr 09/14/17 21:02 09/14/17 21:14 Normal Saline IV 09/14/17 22:02 999 mls/hr .BOLUS ONE Administration Ondansetron HCl 4 mg 09/14/17 21:02 09/14/17 21:15 Zofran IV 09/14/17 21:03 4 mg ONETIME ONE Administration Sodium Chloride 10 ml 09/14/17 21:02 09/14/17 22:18 Saline Flush FLUSH 10 ml ASDIRECTED PRN Administration Keep Vein Open Departure - Departure Time of Disposition: 22:10 Disposition: Home, Self-Care 01 Condition: Fair Clinical Impression: Influenza - Discharge Information Instructions: Influenza, Adult, [id number] Forms: ED Department Discharge Additional Instructions: Drink plenty of water Try to eat small amounts when able Tylenol and/or ibuprofen as directed for pain/fever Follow up with your primary care facility - My Orders Last 24 Hours: My Active Orders 09/14/17 21:02 Peripheral IV Care [RC] . DIRECTED Peripheral IV Insertion Adult [OM.PC] Stat 09/14/17 21:15 INFLUENZA A+B AG SCREEN [RM] Stat 09/14/17 22:36 UA W/MICROSCOPIC [URIN] Stat - Assessment/Plan Last 24 Hours: My Active Orders 09/14/17 21:02 Peripheral IV Care [RC] . DIRECTED Peripheral IV Insertion Adult [OM.PC] Stat 09/14/17 21:15 INFLUENZA A+B AG SCREEN [RM] Stat 09/14/17 22:36 UA W/MICROSCOPIC [URIN] Stat
[2017-09-14 21:45] LABS: ANION GAP 13.2
[2017-09-14] MEDS ORDERED: Butorphanol 2 MG/ML SDV IVPUSH ONE (22:09)
== END 2017-09-14 22:40 | disposition home or self-care (01) ==
LOC: DL.ED 20:18
DX: J11.1 Influenza due to unidentified influenza virus with other respiratory manifestations (principal); I10 Essential (primary) hypertension; Z88.8 Allergy status to other drugs, medicaments and biological substances; Z79.899 Other long term (current) drug therapy
CPT/HCPCS: 36415; 80053; 85025; 87804; 96361; 96374; 96375; 99284; J0595; J2405; J7030; J7050

== ENCOUNTER 2017-09-14 23:27 | Emergency (ER) | payer OTHER ==
[2017-09-14] MEDS ORDERED: Sodium Chloride 0.9% 1,000 ML IV ONE (23:30)
[2017-09-15 00:22] VITALS: BP 155/88
--- NOTE | 2017-09-15 00:47 | EDM.PDOC ---
ED HPI GENERAL MEDICAL PROBLEM - General Chief Complaint: Allergic Reaction Stated Complaint: REACTION TO MEDICATION [id number] Time Seen by Provider: 09/15/17 00:00 Source of Information: Reports: Patient, RN, RN Notes Reviewed History Limitations: Reports: No Limitations - History of Present Illness INITIAL COMMENTS - FREE TEXT/NARRATIVE: Pt returned to the ER after being discharged earlier. She states she had a reaction to the Stadol she was given. Patient states she felt a hot feeling, felt as if her throat and tongue were swelling and she could not swallow. Upon arrival the patient is talking and breathing normally. Onset: Today, Sudden - Related Data Allergies Allergy/AdvReac Type Severity Reaction Status Date / Time fentanyl Allergy Severe throat Verified 09/14/17 20:33 swells prednisone Allergy Intermediate heart races Verified 09/14/17 20:33 gabapentin Allergy Nausea and Verified 09/14/17 20:33 Vomiting sumatriptan [From Imitrex] Allergy Nausea and Verified 09/14/17 20:33 Vomiting Home Meds: Home Meds Apixaban [Eliquis] 5 mg PO BID 11/03/16 [History] Metoprolol Succinate 100 mg PO DAILY 11/03/16 [History] Venlafaxine [Effexor XR] 150 mg PO DAILY 11/03/16 [History] lamoTRIgine [Lamictal] 200 mg PO DAILY 11/03/16 [History] Past Medical History HEENT 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: Impaired Vision Other HEENT History: wears glasses Cardiovascular 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: Hypertension Gastrointestinal 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: GERD 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, adreanalectomy Oncologic (Cancer) 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: Other (See Below) Other Oncologic History: Tumor pheochromocytoma - Infectious Disease History Infectious Disease 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: Chicken Pox, Influenza, Measles, Mumps - Past Surgical History Cardiovascular Surgical 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: Other (See Below) Other Cardiovascular Surgeries/Procedures: PE GI Surgical 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: Appendectomy Social & Family History - Family History Family Medical History: Noncontributory - Tobacco Use Smoking Status *Q: Never Smoker Second Hand Smoke Exposure: No - Caffeine Use Caffeine Use: Reports: None - Recreational Drug Use Recreational Drug Use: No ED ROS ALLERGIC REACTION - Review of Systems Review Of Systems: ROS reveals no pertinent complaints other than HPI. ED EXAM GENERAL NO PERIP PULSE - Physical Exam Exam: See Below Exam Limited By: No Limitations General Appearance: Alert, WD/WN, Anxious, Moderate Distress Eye Exam: Bilateral Eye: EOMI, Normal Inspection Ears: Normal External Exam, Hearing Grossly Normal Nose: Normal Inspection Throat/Mouth: Normal Inspection, Normal Lips, Normal Teeth, Normal Gums, Normal Oropharynx, Normal Voice, No Airway Compromise Head: Atraumatic, Normocephalic Neck: Normal Inspection, Supple, Non-Tender, Full Range of Motion Respiratory/Chest: No Respiratory Distress, Lungs Clear, Normal Breath Sounds, No Accessory Muscle Use, Chest Non-Tender Cardiovascular: Normal Peripheral Pulses, Regular Rate, Rhythm, No Edema, No Gallop, No JVD, No Murmur, No Rub GI/Abdominal: Normal Bowel Sounds, Tender (Female) Exam: Deferred Rectal (Female) Exam: Deferred Back Exam: Normal Inspection, Full Range of Motion, NT Extremities: Normal Inspection, Normal Range of Motion, Non-Tender, Normal Capillary Refill, No Pedal Edema Neurological: Alert, Oriented, CN II-XII Intact, Normal Cognition, Normal Gait, Normal Reflexes, No Motor/Sensory Deficits Psychiatric: Anxious, Tearful Skin Exam: Warm, Dry, Normal Color, No Rash, Other (4 healing scars from adrenalectomy) Lymphatic: No Adenopathy Course - Vital Signs Last Recorded V/S: Last Vital Signs Temp 97.4 F 09/14/17 23:30 Pulse 76 09/14/17 23:30 Resp 20 09/14/17 23:30 BP 155/88 H 09/14/17 23:30 Pulse Ox 100 09/14/17 23:30 - Orders/Labs/Meds Orders: Active Orders 24 hr Category Date Time Status EKG Documentation Completion [RC] STAT Care 09/14/17 23:30 Active Meds: Medications Discontinued Medications Generic Name Dose Route Start Last Admin Trade Name Freq PRN Reason Stop Dose Admin Sodium Chloride 1,000 mls @ 999 mls/hr 09/14/17 23:30 09/14/17 23:34 Normal Saline IV 09/15/17 00:30 999 mls/hr .BOLUS ONE Administration Departure - Departure Time of Disposition: 00:46 Disposition: Home, Self-Care 01 Condition: Fair Clinical Impression: Reaction, drug, adverse Qualifiers: Encounter type: initial encounter Qualified Code(s): T88.7XXA - Unspecified adverse effect of drug or medicament, initial encounter - Discharge Information Instructions: Anaphylactic Reaction, Adult Referrals: PCP,Unobtain [Ordering Only Provider] - Forms: ED Department Discharge Additional Instructions: Rest Follow up with your primary care facility tomorrow Return to the ER with any further problems - My Orders Last 24 Hours: My Active Orders 09/14/17 23:30 EKG Documentation Completion [RC] STAT - Assessment/Plan Last 24 Hours: My Active Orders 09/14/17 23:30 EKG Documentation Completion [RC] STAT
--- NOTE | 2017-09-16 13:21 | EKG ---
09/14/2017 - BHARATH GONZALEZ GEORGE - TIME: 11:30 p.m. As per my reading, EKG shows sinus rhythm at 54. [facility] /[id number]
== END 2017-09-15 01:05 | disposition home or self-care (01) ==
LOC: DL.ED 23:27
DX: R22.1 Localized swelling, mass and lump, neck (principal); T40.4X5A Adverse effect of other synthetic narcotics, initial encounter; I10 Essential (primary) hypertension; Z88.8 Allergy status to other drugs, medicaments and biological substances; Z79.899 Other long term (current) drug therapy
CPT/HCPCS: 93005; 99284; J7030

== ENCOUNTER 2017-09-16 10:26 | Emergency (ER) | payer OTHER ==
--- NOTE | 2017-09-16 10:31 | EDM.PDOC ---
ED HPI GENERAL MEDICAL PROBLEM - General Chief Complaint: Gastrointestinal Problem Stated Complaint: [id number] SICK CANT KEEP ANYTHING DOWN Time Seen by Provider: 09/16/17 10:30 Source of Information: Reports: Patient, Old Records, RN, RN Notes Reviewed History Limitations: Reports: No Limitations - History of Present Illness INITIAL COMMENTS - FREE TEXT/NARRATIVE: Arrives from home by POV with c/o nausea and vomiting, stating that for several days she can't keep anything down. Denies abdominal pain or diarrhea. Admits to constipation. Pt is s/p left adrenalectomy at [facility] 08/29/17. She states that she has not felt well in general since the surgery with loss of appetite and nausea. On 09/14/17 she was diagnosed with influenza B as well, and continues to have some generalized body aches, fevers, and cold sweats which she attributes to the flu. Duration: Day(s): (3), Constant Location: Reports: Abdomen Quality: Reports: Other (denies pain) Severity: Severe Improves with: Reports: None Worsens with: Reports: Eating Associated Symptoms: Reports: No Other Symptoms - Related Data Allergies Allergy/AdvReac Type Severity Reaction Status Date / Time fentanyl Allergy Severe throat Verified 09/16/17 10:31 swells prednisone Allergy Intermediate heart races Verified 09/16/17 10:31 gabapentin Allergy Nausea and Verified 09/16/17 10:31 Vomiting sumatriptan [From Imitrex] Allergy Nausea and Verified 09/16/17 10:31 Vomiting Home Meds: Home Meds Apixaban [Eliquis] 5 mg PO BID 11/03/16 [History] Metoprolol Succinate 100 mg PO DAILY 11/03/16 [History] Venlafaxine [Effexor XR] 150 mg PO DAILY 11/03/16 [History] lamoTRIgine [Lamictal] 200 mg PO DAILY 11/03/16 [History] Past Medical History HEENT 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: Impaired Vision Other HEENT History: wears glasses Cardiovascular 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: Hypertension 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, adreanalectomy Oncologic (Cancer) 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: Other (See Below) Other Oncologic History: Tumor pheochromocytoma - Infectious Disease History Infectious Disease 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: Chicken Pox, Influenza, Measles, Mumps - Past Surgical History Cardiovascular Surgical 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: Other (See Below) Other Cardiovascular Surgeries/Procedures: PE GI Surgical 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: Appendectomy Social & Family History - Family History Family Medical History: Noncontributory - Tobacco Use Smoking Status *Q: Never Smoker Second Hand Smoke Exposure: No - Caffeine Use Caffeine Use: Reports: None - Recreational Drug Use Recreational Drug Use: No - Living Situation & Occupation Occupation: Employed ED ROS GENERAL - Review of Systems Review Of Systems: ROS reveals no pertinent complaints other than HPI. ED EXAM, GENERAL - Physical Exam Exam: See Below Exam Limited By: No Limitations General Appearance: Alert, WD/WN, No Apparent Distress Eye Exam: Bilateral Eye: Normal Inspection (no scleral icterus) Ears: Hearing Grossly Normal Nose: No Blood, Nasal Drainage (clear nasal mucus) Throat/Mouth: Normal Lips, Normal Teeth, Normal Gums, Normal Oropharynx, Normal Voice, No Airway Compromise, Other (dry oral membranes) Head: Atraumatic, Normocephalic Neck: Normal Inspection, Supple, Non-Tender, Full Range of Motion. No: Lymphadenopathy (L), Lymphadenopathy (R) Respiratory/Chest: No Respiratory Distress, Lungs Clear, Normal Breath Sounds, No Accessory Muscle Use, Chest Non-Tender Cardiovascular: Normal Peripheral Pulses, Regular Rate, Rhythm, No Edema, No Gallop, No JVD, No Murmur, No Rub GI/Abdominal: Normal Bowel Sounds, Soft, No Distention, No Abnormal Bruit, Rebound, Tender (very mild epigastric tenderness to palpation), Other (well healed surgical incision). No: Guarding, Rigid (Female) Exam: Deferred Rectal (Female) Exam: Deferred Back Exam: Normal Inspection. No: CVA Tenderness (L), CVA Tenderness (R) Extremities: Normal Inspection, Normal Range of Motion, Non-Tender, Normal Capillary Refill, No Pedal Edema Neurological: Alert, Oriented, CN II-XII Intact, Normal Cognition, Normal Gait, No Motor/Sensory Deficits Psychiatric: Normal Affect, Normal Mood Skin Exam: Warm, Dry, Intact, Normal Color, No Rash Course - Vital Signs Last Recorded V/S: Last Vital Signs Temp 36.5 C 09/16/17 10:32 Pulse 62 09/16/17 12:06 Resp 16 09/16/17 12:06 BP 126/50 L 09/16/17 12:06 Pulse Ox 97 09/16/17 12:06 - Orders/Labs/Meds Orders: Active Orders 24 hr Category Date Time Status Peripheral IV Care [RC] . DIRECTED Care 09/16/17 10:56 Active Abdomen 2V AP Upright Decub [CR] Urgent Exams 09/16/17 10:53 Taken UA W/MICROSCOPIC [URIN] Stat Lab 09/16/17 11:05 Ordered Sodium Chloride 0.9% [Saline Flush] Med 09/16/17 10:53 Active 10 ml FLUSH ASDIRECTED PRN Peripheral IV Insertion Adult [OM.PC] Stat Oth 09/16/17 10:53 Ordered Medication Orders Sodium Chloride (Saline Flush) 10 ml FLUSH ASDIRECTED PRN PRN Reason: Keep Vein Open Last Admin: 09/16/17 11:21 Dose: 10 ml Labs: Laboratory Tests 09/16/17 09/16/17 09/16/17 Range/Units 11:05 11:17 11:17 WBC 9.8 (5.0-10.0) 10^3/uL RBC 4.68 (4.2-5.4) 10^6/uL Hgb 13.9 (12.0-16.0) g/dL Hct 42.4 (37.0-47.0) % MCV 90.6 (80-100) fL MCH 29.7 (27.0-34.0) pg MCHC 32.8 L (33.0-35.0) g/dL Plt Count 336 (150-450) 10^3/uL Neut % (Auto) 69.8 (42.2-75.2) % Lymph % (Auto) 21.4 (20.5-50.1) % [place] % (Auto) 7.3 (2-8) % Eos % (Auto) 1.1 (1.0-3.0) % Baso % (Auto) 0.4 (0.0-1.0) % Sodium 140 (135-145) mmol/L Potassium 3.8 (3.6-5.0) mmol/L Chloride 107 (101-111) mmol/L Carbon Dioxide 23.0 (21.0-31.0) mmol/L Anion Gap 13.8 BUN 15 (7-18) mg/dL Creatinine 0.9 (0.6-1.3) mg/dL Est Cr Clr Drug Dosing 62.23 mL/min Estimated GFR (MDRD) > 60 BUN/Creatinine Ratio 16.66 Glucose 102 (74-105) mg/dL Calcium 8.9 (8.4-10.2) mg/dl Total Bilirubin 0.7 (0.2-1.0) mg/dL AST 23 (10-42) IU/L ALT 24 (10-60) IU/L Alkaline Phosphatase 87 (42-121) IU/L Total Protein 7.3 (6.7-8.2) g/dl Albumin 3.8 (3.2-5.5) g/dl Globulin 3.5 Albumin/Globulin Ratio 1.09 Amylase 43 (28-100) U/L Lipase 13 L (22-51) U/L Urine Color Yellow (YELLOW) Urine Appearance Clear (CLEAR) Urine pH 5.5 (5.0-9.0) Ur Specific [place] 1.025 (1.005-1.030) Urine Protein Trace H (NEGATIVE) Urine Glucose (UA) Negative (NEGATIVE) Urine Ketones 40 H (NEGATIVE) Urine Occult Blood Negative (NEGATIVE) Urine Nitrite Negative (NEGATIVE) Urine Bilirubin Small H (NEGATIVE) Urine Urobilinogen 0.2 (0.2-1.0) mg/dL Ur Leukocyte Esterase Negative (NEGATIVE) Urine RBC 0-5 /HPF Urine WBC 0-5 (0-5/HPF) /HPF Ur Epithelial Cells Many H /HPF Urine Bacteria Moderate H (0-FEW/HPF) /HPF Urine Mucus Many H /LPF Urine Yeast Occasional H (0/HPF) /HPF Meds: Medications Generic Name Dose Route Start Last Admin Trade Name Freq PRN Reason Stop Dose Admin Sodium Chloride 10 ml 09/16/17 10:53 09/16/17 11:21 Saline Flush FLUSH 10 ml ASDIRECTED PRN Administration Keep Vein Open Discontinued Medications Generic Name Dose Route Start Last Admin Trade Name Freq PRN Reason Stop Dose Admin Sodium Chloride 1,000 mls @ 999 mls/hr 09/16/17 10:53 09/16/17 11:21 Normal Saline IV 09/16/17 11:53 999 mls/hr .BOLUS ONE Administration Ondansetron HCl 4 mg 09/16/17 10:53 09/16/17 11:21 Zofran IV 09/16/17 10:54 4 mg ONETIME ONE Administration - Radiology Interpretation Free Text/Narrative:: Abd. Xray: no acute process, see Rad. report. Departure - Departure Time of Disposition: 12:16 Disposition: Home, Self-Care 01 Condition: Fair Clinical Impression: Vaginal candidiasis, Constipation Nausea and vomiting Qualifiers: Vomiting type: unspecified Vomiting Intractability: non-intractable Qualified Code(s): R11.2 - Nausea with vomiting, unspecified - Discharge Information Instructions: Nausea and Vomiting, Adult, Constipation, Adult, Vaginal Yeast Infection, Adult Forms: ED Department Discharge Additional Instructions: Rx: Zofran 4mg Rx: Diflucan 150mg Clear liquid diet until nausea improves, then advance to soft bland diet as tolerated. May try over the counter Magnesium supplement, 250mg to 500mg twice a day. Follow up in clinic if not improving in 3 days. - My Orders Last 24 Hours: My Active Orders 09/16/17 10:53 Abdomen 2V AP Upright Decub [CR] Urgent Sodium Chloride 0.9% [Saline Flush] 10 ml FLUSH ASDIRECTED PRN Peripheral IV Insertion Adult [OM.PC] Stat 09/16/17 10:56 Peripheral IV Care [RC] . DIRECTED 09/16/17 11:05 UA W/MICROSCOPIC [URIN] Stat - Assessment/Plan Last 24 Hours: My Active Orders 09/16/17 10:53 Abdomen 2V AP Upright Decub [CR] Urgent Sodium Chloride 0.9% [Saline Flush] 10 ml FLUSH ASDIRECTED PRN Peripheral IV Insertion Adult [OM.PC] Stat 09/16/17 10:56 Peripheral IV Care [RC] . DIRECTED 09/16/17 11:05 UA W/MICROSCOPIC [URIN] Stat
[2017-09-16] MEDS ORDERED: Sodium Chloride 0.9% 1,000 ML IV ONE (10:53)
[2017-09-16] MEDS ORDERED: Ondansetron 4 MG/2 ML SDV IV ONE (10:53)
[2017-09-16] MEDS ORDERED: Sodium Chloride 0.9% 10 ML Syringe FLUSH PRN (10:53)
[2017-09-16 11:44] LABS: CHLORIDE,CL 107 mmol/L (101-111); SODIUM,NA 140 mmol/L (135-145)
[2017-09-16 12:06] VITALS: BP 126/50
--- NOTE | 2017-09-16 13:31 | CR ---
CLINICAL HISTORY: 61-year-old female with nausea, vomiting and abdominal pain. INTERPRETATION: Stool outlining normal caliber ascending right and transverse colon. Cluster of surgi nickie loraine near the midline, LUQ. Numerous phleboliths in the pelvis. AP lumbar spine, pelvis and hips unremarkable. No abdominal soft tissue mass lesion, signs of mechanical bowel obstruction or free intraperitoneal a ir. Normal cardiac silhouette. Lung bases clear. CONCLUSION: Nonspecific plain film exam of the abdomen. No abdominal mass or signs of mechanical pamela l obstruction.
== END 2017-09-16 12:31 | disposition home or self-care (01) ==
LOC: DL.ED 10:26
DX: B37.3 Candidiasis of vulva and vagina (principal); K59.00 Constipation, unspecified; R11.2 Nausea with vomiting, unspecified; K21.9 Gastro-esophageal reflux disease without esophagitis; F41.9 Anxiety disorder, unspecified; F32.9 Major depressive disorder, single episode, unspecified; Z88.8 Allergy status to other drugs, medicaments and biological substances; Z79.899 Other long term (current) drug therapy
CPT/HCPCS: 36415; 74021; 80053; 81001; 82150; 83690; 85025; 96361; 96374; 99283; J2405; J7030; J7050

== ENCOUNTER 2018-01-24 19:00 | Emergency (ER) | payer OTHER ==
[2018-01-24 20:03] LABS: ANION GAP 10.5
[2018-01-24 20:38] VITALS: BP 134/55
[2018-01-24] MEDS ORDERED: LORazepam 2 MG/ML Syringe IM ONE (21:12)
--- NOTE | 2018-01-24 21:16 | EDM.PDOC ---
ED HPI GENERAL MEDICAL PROBLEM - General Chief Complaint: Syncope Stated Complaint: PANIC ATTAC [id number] Time Seen by Provider: 01/24/18 21:13 Source of Information: Reports: Patient History Limitations: Reports: No Limitations - History of Present Illness INITIAL COMMENTS - FREE TEXT/NARRATIVE: states had a panic attack and got light headed dizzy feels like passing out. had this before but not for a long time. - Related Data Allergies Allergy/AdvReac Type Severity Reaction Status Date / Time fentanyl Allergy Severe throat Verified 01/24/18 19:20 swells prednisone Allergy Intermediate heart races Verified 01/24/18 19:20 butorphanol [From Stadol] Allergy Swollen Verified 01/24/18 19:21 Tongue gabapentin Allergy Nausea and Verified 01/24/18 19:20 Vomiting sumatriptan [From Imitrex] Allergy Nausea and Verified 01/24/18 19:20 Vomiting Home Meds: Home Meds Apixaban [Eliquis] 5 mg PO BID 11/03/16 [History] Metoprolol Succinate 50 mg PO DAILY 11/03/16 [History] Venlafaxine [Effexor XR] 150 mg PO DAILY 11/03/16 [History] lamoTRIgine [Lamictal] 200 mg PO DAILY 11/03/16 [History] Past Medical History HEENT 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: Impaired Vision Other HEENT History: wears glasses Cardiovascular 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: Hypertension 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, adreanalectomy Oncologic (Cancer) 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: Other (See Below) Other Oncologic History: Tumor pheochromocytoma - Infectious Disease History Infectious Disease 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: Chicken Pox, Influenza, Measles, Mumps - Past Surgical History Cardiovascular Surgical 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: Other (See Below) Other Cardiovascular Surgeries/Procedures: PE GI Surgical 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: Appendectomy Female Surgical 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: Hysterectomy Social & Family History - Family History Family Medical History: Noncontributory - Tobacco Use Smoking Status *Q: Never Smoker Second Hand Smoke Exposure: No - Caffeine Use Caffeine Use: Reports: Soda Other Caffeine Use: / soda in am - Recreational Drug Use Recreational Drug Use: No - Living Situation & Occupation Occupation: Employed ED ROS GENERAL - Review of Systems Review Of Systems: ROS reveals no pertinent complaints other than HPI. - Physical Exam Exam: See Below Exam Limited By: No Limitations General Appearance: Alert, WD/WN, Anxious Eye Exam: Bilateral Eye: PERRL (pupils ER @ 4mm) Ears: Hearing Grossly Normal Throat/Mouth: Normal Voice, No Airway Compromise Head Exam: Atraumatic Neck: Non-Tender, Full Range of Motion Respiratory/Chest: No Respiratory Distress Cardiovascular: Regular Rate, Rhythm GI/Abdominal: Soft, Non-Tender Neuro Exam (Abbreviated): Alert, Oriented, Normal Cognition, Normal Gait, No Motor/Sensory Deficits Psychiatric: Anxious Skin Exam: Warm, Dry, Normal Color Course - Vital Signs Last Recorded V/S: Last Vital Signs Temp 36.8 C 01/24/18 20:38 Pulse 67 01/24/18 20:38 Resp 18 01/24/18 20:38 BP 134/55 L 01/24/18 20:38 Pulse Ox 100 01/24/18 20:38 - Orders/Labs/Meds Orders: Active Orders 24 hr Category Date Time Status EKG 12 Lead [EKG Documentation Completion] [RC] STAT Care 01/24/18 19:19 Active Labs: Laboratory Tests 01/24/18 01/24/18 01/24/18 Range/Units 19:35 19:35 19:40 WBC 9.0 (5.0-10.0) 10^3/uL RBC 4.63 (4.2-5.4) 10^6/uL Hgb 13.7 (12.0-16.0) g/dL Hct 42.2 (37.0-47.0) % MCV 91.1 (80-100) fL MCH 29.6 (27.0-34.0) pg MCHC 32.5 L (33.0-35.0) g/dL Plt Count 248 D (150-450) 10^3/uL Neut % (Auto) 57.9 (42.2-75.2) % Lymph % (Auto) 31.5 (20.5-50.1) % [place] % (Auto) 9.1 H (2-8) % Eos % (Auto) 1.2 (1.0-3.0) % Baso % (Auto) 0.3 (0.0-1.0) % Sodium 141 (135-145) mmol/L Potassium 3.5 L (3.6-5.0) mmol/L Chloride 105 (101-111) mmol/L Carbon Dioxide 29.0 (21.0-31.0) mmol/L Anion Gap 10.5 BUN 16 (7-18) mg/dL Creatinine 1.0 (0.6-1.3) mg/dL Est Cr Clr Drug Dosing 55.31 mL/min Estimated GFR (MDRD) 56 BUN/Creatinine Ratio 16.00 Glucose 102 (74-105) mg/dL Calcium 8.6 (8.4-10.2) mg/dl Total Bilirubin 0.3 (0.2-1.0) mg/dL AST 20 (10-42) IU/L ALT 20 (10-60) IU/L Alkaline Phosphatase 95 (42-121) IU/L Troponin I < 0.02 (0.00-0.02) ng/ml Total Protein 7.1 (6.7-8.2) g/dl Albumin 3.8 (3.2-5.5) g/dl Globulin 3.3 Albumin/Globulin Ratio 1.15 Meds: Medications Discontinued Medications Generic Name Dose Route Start Last Admin Trade Name Freq PRN Reason Stop Dose Admin Lorazepam 1 mg 01/24/18 21:12 01/24/18 21:22 Ativan IM 01/24/18 21:13 1 mg ONETIME ONE Administration - Re-Assessments/Exams Free Text/Narrative Re-Assessment/Exam: 01/24/18 21:15 re-exam; feeling much better and relaxed now. Departure - Departure Time of Disposition: 21:30 Disposition: Home, Self-Care 01 Clinical Impression: Reaction, situational, acute, to stress - Discharge Information Instructions: Panic Attack, [id number] Forms: ED Department Discharge Additional Instructions: 1) rest 2) recheck if there is any change or concern - My Orders Last 24 Hours: My Active Orders 01/24/18 19:19 EKG 12 Lead [EKG Documentation Completion] [RC] STAT - Assessment/Plan Last 24 Hours: My Active Orders 01/24/18 19:19 EKG 12 Lead [EKG Documentation Completion] [RC] STAT
== END 2018-01-24 21:33 | disposition home or self-care (01) ==
LOC: DL.ED 19:00
DX: F43.0 Acute stress reaction (principal); I10 Essential (primary) hypertension; F32.9 Major depressive disorder, single episode, unspecified; Z79.899 Other long term (current) drug therapy; Z88.8 Allergy status to other drugs, medicaments and biological substances
CPT/HCPCS: 36415; 80053; 84484; 85025; 93005; 96372; 99284; J2060

== ENCOUNTER 2019-02-06 14:42 | Emergency (ER) | payer OTHER ==
[2019-02-06 14:49] VITALS: BP 103/43
--- NOTE | 2019-02-06 15:15 | EDM.PDOC ---
Scribed by Vernell Will 02/06/19 1513 for Noe Washington MD ED HPI GENERAL MEDICAL PROBLEM - General Chief Complaint: General Stated Complaint: NEED HELP WITH MEDS PER PATIENT Time Seen by Provider: 02/06/19 14:56 Source of Information: Reports: Patient, RN, RN Notes Reviewed History Limitations: Reports: No Limitations - History of Present Illness INITIAL COMMENTS - FREE TEXT/NARRATIVE: Patient presents to ER stating that she is here from out of town taking care of her mother and ran out of her medications. She has no acute complaints. Onset: Today Location: Reports: Generalized Improves with: Reports: None Worsens with: Reports: None - Related Data Allergies Allergy/AdvReac Type Severity Reaction Status Date / Time fentanyl Allergy Severe throat Verified 02/06/19 15:12 swells prednisone Allergy Intermediate heart races Verified 02/06/19 15:12 butorphanol [From Stadol] Allergy Swollen Verified 02/06/19 15:12 Tongue gabapentin Allergy Nausea and Verified 02/06/19 15:12 Vomiting sumatriptan [From Imitrex] Allergy Nausea and Verified 02/06/19 15:12 Vomiting Home Meds: Home Meds Venlafaxine [Effexor XR] 150 mg PO DAILY 11/03/16 [History] lamoTRIgine [Lamictal] 150 mg PO DAILY 11/03/16 [History] Past Medical History HEENT 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: Impaired Vision Other HEENT History: wears glasses Cardiovascular 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: Hypertension 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, adreanalectomy Oncologic (Cancer) 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: Other (See Below) Other Oncologic History: Tumor pheochromocytoma - Infectious Disease History Infectious Disease 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: Chicken Pox, Influenza, Measles, Mumps - Past Surgical History Cardiovascular Surgical 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: Other (See Below) Other Cardiovascular Surgeries/Procedures: PE GI Surgical 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: Appendectomy Female Surgical 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: Hysterectomy Social & Family History - Family History Family Medical History: Noncontributory - Caffeine Use Caffeine Use: Reports: Soda Other Caffeine Use: 1/4 soda in am - Living Situation & Occupation Occupation: Employed ED ROS GENERAL - Review of Systems Review Of Systems: ROS reveals no pertinent complaints other than HPI. ED EXAM, GENERAL - Physical Exam Exam: See Below Exam Limited By: No Limitations General Appearance: Alert, WD/WN, No Apparent Distress Head: Normocephalic Respiratory/Chest: No Respiratory Distress Neurological: Alert, Oriented, No Motor/Sensory Deficits Psychiatric: Normal Mood Course - Vital Signs Last Recorded V/S: Last Vital Signs Temp 96.7 F 02/06/19 14:48 Pulse 73 02/06/19 14:48 Resp 18 02/06/19 14:48 BP 103/43 L 02/06/19 14:48 Pulse Ox 97 02/06/19 14:48 Departure - Departure Time of Disposition: 15:11 Disposition: Home, Self-Care 01 Condition: Good Clinical Impression: Has run out of medications - Discharge Information *PRESCRIPTION DRUG MONITORING PROGRAM REVIEWED*: No *COPY OF PRESCRIPTION DRUG MONITORING REPORT IN PATIENT TAB: No Forms: ED Department Discharge Additional Instructions: Rx: Effexor XR 150mg Rx: Lamictal 150mg Follow up in clinic with your doctor for medication management. I have read and agree with the documentation that has been completed regarding this visit. By signing this record, I attest that the documentation was completed in my physical presence and is an accurate record of the encounter.
== END 2019-02-06 15:17 | disposition home or self-care (01) ==
LOC: DL.ED 14:42
DX: Z76.0 Encounter for issue of repeat prescription (principal); I10 Essential (primary) hypertension; F41.9 Anxiety disorder, unspecified; F32.9 Major depressive disorder, single episode, unspecified; Z88.6 Allergy status to analgesic agent; Z88.8 Allergy status to other drugs, medicaments and biological substances; Z79.899 Other long term (current) drug therapy
CPT/HCPCS: 99281

== ENCOUNTER 2019-03-21 18:17 | Emergency (ER) | payer OTHER ==
[2019-03-21] MEDS ORDERED: LORazepam 1 MG Tab PO ONE (18:18)
[2019-03-21 19:07] VITALS: BP 143/52; PULSE 61
[2019-03-21] MEDS ORDERED: Acyclovir 200 MG Cap PO ONE (19:55)
[2019-03-21] MEDS ORDERED: LORazepam 1 MG Tab ONE (20:17)
--- NOTE | 2019-03-21 20:19 | EDM.PDOC ---
ED HPI GENERAL MEDICAL PROBLEM - General Chief Complaint: Skin Complaint Stated Complaint: SHINGLES Time Seen by Provider: 03/21/19 20:14 Source of Information: Reports: Patient History Limitations: Reports: No Limitations - History of Present Illness INITIAL COMMENTS - FREE TEXT/NARRATIVE: c/o recurrent shingles attack. had this 2 weeks ago Tx with zovirax got better but been really stressed with weather and caring for elderly mother and shingle returned past few days with intense burning and pins on-off. hard to sleep and also out of her Rx since unable get to clinic due to weather. Right Middle Abdomen Pain Score (Numeric/FACES): 8 - Related Data Allergies Allergy/AdvReac Type Severity Reaction Status Date / Time fentanyl Allergy Severe throat Verified 03/21/19 18:52 swells prednisone Allergy Intermediate heart races Verified 03/21/19 18:52 butorphanol [From Stadol] Allergy Swollen Verified 03/21/19 18:52 Tongue gabapentin Allergy Nausea and Verified 03/21/19 18:52 Vomiting sumatriptan [From Imitrex] Allergy Nausea and Verified 03/21/19 18:52 Vomiting Home Meds: Home Meds Venlafaxine [Effexor XR] 150 mg PO DAILY 11/03/16 [History] lamoTRIgine [Lamictal] 150 mg PO DAILY 11/03/16 [History] Past Medical History HEENT 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: Impaired Vision Other HEENT History: wears glasses Cardiovascular 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: Hypertension Gastrointestinal 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: GERD 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, adreanalectomy Oncologic (Cancer) 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: Other (See Below) Other Oncologic History: Tumor pheochromocytoma - Infectious Disease History Infectious Disease 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: Chicken Pox, Influenza, Measles, Mumps, Shingles - Past Surgical History Cardiovascular Surgical 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: Other (See Below) Other Cardiovascular Surgeries/Procedures: PE GI Surgical 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: Appendectomy Female Surgical 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: Hysterectomy Social & Family History - Family History Family Medical History: Noncontributory - Tobacco Use Smoking Status *Q: Unknown Ever Smoked Second Hand Smoke Exposure: No - Caffeine Use Caffeine Use: Reports: Soda Other Caffeine Use: 06/12 soda in am - Recreational Drug Use Recreational Drug Use: No - Living Situation & Occupation Occupation: Employed ED ROS GENERAL - Review of Systems Review Of Systems: ROS reveals no pertinent complaints other than HPI. ED EXAM, SKIN/RASH Exam: See Below Exam Limited By: No Limitations General Appearance: Alert, WD/WN, Anxious, Mild Distress, Other (tearful) Eye Exam: Bilateral Eye: PERRL (pupils ER @ 4mm) Ears: Hearing Grossly Normal Throat/Mouth: Normal Voice, No Airway Compromise Head: Atraumatic Neck: Non-Tender, Full Range of Motion Respiratory/Chest: No Respiratory Distress Cardiovascular: Regular Rate, Rhythm GI/Abdominal: Soft, Non-Tender Neurological: Alert, Oriented, Normal Cognition, Normal Gait, No Motor/Sensory Deficits Psychiatric: Tearful Skin: Warm, Dry, Normal Color, Zoster-Like Rash Location, Skin: Abdomen Characteristics: Vesicular Associated features: Crusting. No: Lymphangitis, Weeping Lymphatic: No Adenopathy Course - Vital Signs Last Recorded V/S: Last Vital Signs Temp 37.4 C 03/21/19 19:05 Pulse 61 03/21/19 19:05 Resp 18 03/21/19 19:05 BP 143/52 H 03/21/19 19:05 Pulse Ox 100 03/21/19 19:05 - Orders/Labs/Meds Meds: Medications Discontinued Medications Generic Name Dose Route Start Last Admin Trade Name Freq PRN Reason Stop Dose Admin Acyclovir 1,000 mg 03/21/19 19:55 03/21/19 20:11 Zovirax PO 03/21/19 19:56 1,000 mg ONETIME ONE Administration Departure - Departure Time of Disposition: 20:18 Disposition: Home, Self-Care 01 Condition: Good Clinical Impression: Shingles (herpes zoster) polyneuropathy - Discharge Information Additional Instructions: 1) rest 2) follow up at clinic rx given; zovirax 200mg tkae 5 times daily x 5 days
== END 2019-03-21 20:25 | disposition home or self-care (01) ==
LOC: DL.ED 18:17
DX: B02.23 Postherpetic polyneuropathy (principal); I10 Essential (primary) hypertension; F32.9 Major depressive disorder, single episode, unspecified; Z79.899 Other long term (current) drug therapy; Z88.1 Allergy status to other antibiotic agents; Z88.5 Allergy status to narcotic agent; Z88.8 Allergy status to other drugs, medicaments and biological substances
CPT/HCPCS: 99282; A9270